=== PATIENT | male | born 1990 | race Caucasian/White ===

== ENCOUNTER 2019-05-23 09:45 | Day surgery (SDC) | payer BC, OTHER ==
[2019-05-23] VITALS (13 sets, daily range): BP systolic 108–134; BP diastolic 53–80; PULSE 54–87; RESP 16–20; Ht 188 cm; Wt 78.6 kg
[~2019-05-23] VITALS: Ht 188 cm; Wt 78.6 kg
[~2019-05-23 09:45] MED LIST: CEFAZOLIN 2 GM/50 ML (PMX) 50 ML IVPB SCH; SOD CHLORIDE 0.9% 1,000 ML IV SCH
[2019-05-23] MEDS ORDERED: AMLO5TAB4 PO (10:30)
--- NOTE | 2019-05-23 11:26 | PREAC ---
Date/Time of Note Date/Time of Note DATE: 05/23/19 TIME: 11:24 Anesthesia Eval and Record Evaluation Time Pre-Procedure Interview DATE: 05/23/19 TIME: 11:24 Age 28 Sex male NPO: 8 hrs Preoperative diagnosis LEFT GROIN, THIGH AND GLUTEAL MASSES Planned procedure EXCISION OF LEFT GROIN, THIGH AND GLUTEAL MASSES Past Medical History Past Medical History: Includes Pulm: Smoking Hx Recreational drugs: Marijuana Surgery & Anesthesia Issues No known issue Meds Anticoagulation: No Beta Sapna within 24 hr: No Reason Beta Sapna not given: Pt. not on B-Sapna Reported Medications Amlodipine Besylate* (Norvasc*) 5 Mg Tablet, 5 MG PO DAILY, TAB 05/23/19 Current Medications Cefazolin Sodium/ Dextrose 50 ml @ 100 mls/hr PRE-OP IVPB ; Start 05/23/19 at 06:00 Sodium Chloride 1,000 ml @ 75 mls/hr [id number] IV Last administered on 05/23/19at 10:53; Admin Dose 75 MLS/HR; Start 05/23/19 at 06:00; Stop 05/23/19 at 18:00 Meds reviewed: Yes Allergies Coded Allergies: No Known Allergy (Unverified , 05/22/19) Allergies Reviewed: Yes Labs/Studies Labs Reviewed: Reviewed by anesthesiologist test: N/A Pre-procedure Exam Last vitals Vital Signs Date Temp Pulse Resp B/P (MAP) Pulse Ox O2 O2 Flow FiO2 Time Delivery Rate 05/23/19 98.8 87 16 130/80 100 Room Air 11:19 (97) Airway: Adequate mouth opening, Adequate thyromental dist Mallampati: Mallampati II Teeth: Normal Lung: Normal Heart: Normal ASA Physical Status ASA physical status: 2 Emergency: None Planned Anesthetic General/MAC: ETT Planned Pain Management Parenteral pain med Pre-operative Attestations Prior to commencing anesthesia and surgery, the patient was re-evaluated, there was verification of: *The patient's identity *The results of appropriate recent lab work and preoperative vital signs *The above evaluation not changing prior to induction *Anesthetic plan, risk benefits, alternative and complications discussed with patient/family; questions answered; patient/family understands, accepts and wishes to proceed. Daron Beck M.D. May 23, 2019 11:26
[2019-05-23] MEDS ORDERED: NEOSTIGMINE 3 MG/3 ML SYRINGE ONE (11:28)
[2019-05-23] MEDS ORDERED: ROCURONIUM 50 MG INJ ONE (11:28)
[2019-05-23] MEDS ORDERED: PROPOFOL 20 ML ONE (11:28)
[2019-05-23] MEDS ORDERED: GLYCOPYRROLATE 0.4 MG INJ ONE (11:28)
[2019-05-23] MEDS ORDERED: CEFAZOLIN 1 GM INJ ONE (11:28)
[2019-05-23] MEDS ORDERED: SUCCINYLCHOLINE CHLORIDE 100 MG/5 ML SYG IV ONE (11:28)
[2019-05-23] MEDS ORDERED: ONDANSETRON 4 MG INJ ONE (11:29)
[2019-05-23] MEDS ORDERED: DEXAMETHASONE 4 MG/ML 5 ML INJ ONE (11:29)
[2019-05-23] MEDS ORDERED: FENTAnyl 50 MCG/ML VIAL ONE ×2 (11:29→11:56)
[2019-05-23] MEDS ORDERED: MIDAZOLAM 1 MG/ML 2 ML INJ ONE (11:29)
[2019-05-23] MEDS ORDERED: LABETALOL HCL 20MG INJ IV PRN (11:30)
[2019-05-23] MEDS ORDERED: EPHEDrine 25 MG/5 ML SYG IV PRN (11:30)
[2019-05-23] MEDS ORDERED: OXYCODONE/ACETAMINOPHEN (5/325) TAB PO PRN ×2 (11:30)
[2019-05-23] MEDS ORDERED: MEPERIDINE 25 MG INJ IV PRN (11:30)
[2019-05-23] MEDS ORDERED: DIPHENHYDRAMINE 50 MG INJ IV PRN (11:30)
[2019-05-23] MEDS ORDERED: FENTAnyl 50 MCG/ML VIAL IV PRN ×3 (11:30)
[2019-05-23] MEDS ORDERED: ONDANSETRON 4 MG INJ IV PRN (11:30)
[2019-05-23] MEDS ORDERED: TRIMETHOBENZAMIDE 100 MG/ML VIAL IM PRN (11:30)
[2019-05-23] MEDS ORDERED: HYDROmorphONE 1 MG/5 ML IV SYRINGE IV PRN ×3 (11:30)
[2019-05-23] MEDS ORDERED: ALBUTEROL 0.083% (NEB) 2.5 MG/3 ML AMP HHN PRN (11:30)
[2019-05-23] MEDS ORDERED: MIDAZOLAM 1 MG/ML 2 ML INJ IV PRN (11:30)
[2019-05-23] MEDS ORDERED: IPRATROPIUM (NEB) 0.5 MG/2.5 ML AMP HHN PRN (11:30)
[2019-05-23] MEDS ORDERED: hydrALAzine 20 MG INJ IV PRN (11:30)
[2019-05-23] MEDS ORDERED: BUPIVACAINE 0.25% (MPF) 30 ML INJ ONE (11:50)
[2019-05-23] MEDS ORDERED: HYDROCODONE/APAP (5/325) TAB PO ONE (12:30)
--- NOTE | 2019-05-23 12:34 | OPR ---
Date/Time of Note Date/Time of Note DATE: 05/23/19 TIME: 12:30 Operative Report Procedure Date: May 23, 2019 Preoperative Diagnosis left gluteal mass left inner thigh mass left groin mass Postoperative Diagnosis same Operation/Procedure Performed 1. excision of left gluteal mass 6 cm mass 6 cm incision 2. localized adjacent tissue transfer with the use of skin flaps 12 sq cm defect of left gluteal area 3. excision of left groin mass 5 cm mass 5 cm incision 4. localized adjacent tissue transfer with the use of skin flaps 10 sq cm defect of left groin 5. excision of left inner thigh mass 7 cm mass 7 cm incision 6. localized adjacent tissue transfer with the use of skin flaps 14 sq cm defect of inner left thigh 7. therapeutic injection of subcutaneous local anesthesia Surgeon see signature line Property Insurance Claims Examiner none Anesthesia Type: general Estimated Blood Loss: 10 - 50 ml's Transfusion none Specimen left inner thigh mass left groin mass left gluteal mass Grafts/Implants none Complications none Pt Condition Post Procedure: stable Indications This is a 28-year-old male with multiple masses. He has a mass in the left inner thigh and left groin and left gluteal region. He request surgical excision of all 3 masses. Risks alternatives benefits and percent were discussed the patient. Patient expressed understanding and consents to the operation. Procedure Description Patient is taken to the OR and prepped and draped in usual sterile fashion. Surgical time was performed. IV antibiotics given. Gluteal mass was addressed initially. Elliptical incision was made over the gluteal mass with a 15 blade. Dissection with cautery skin onto the mass and the mass was circumferentially excised. Good hemostasis status. Due to tissue defect localization just transfer with these of skin flaps were performed. Multilayer closed with interrupted 3-0 Vicryl and skin geri. Attention was then paid to the left groin mass. Elliptical incision was made over the groin mass with a 15 blade. Dissection with cautery skin onto the mass and the mass was circumferentially excised. Good hemostasis status. Due to tissue defect localization just transfer with use of skin flaps were performed. Multilayer closed with interrupted 3-0 Vicryl and skin geri. Attention was then paid to the inner thigh mass. Elliptical incision made with a 15 blade over the inner thigh mass. Dissection with cautery skin onto the mass and the mass was circumferentially excised. Good hemostasis status. Due to tissue defect localization to his transfer with these of skin flaps was performed. Multilayer closed with interrupted 3-0 Vicryl and skin geri. Therapeutic subcutaneous local anesthesia was injected to all incision sites. Dry dressings were applied. Felipe GASPAR May 23, 2019 12:34
--- NOTE | 2019-05-23 12:40 | PAC ---
Date/Time of Note Date/Time of Note DATE: 05/23/19 TIME: 12:40 Post-Anesthesia Notes Post-Anesthesia Note Last documented vital signs Vital Signs Date Temp Pulse Resp B/P (MAP) Pulse Ox O2 O2 Flow FiO2 Time Delivery Rate 05/23/19 98.8 87 16 130/80 100 Room Air 11:19 (97) Activity: WNL Respiratory function: WNL Cardiovascular function: WNL Mental status: Baseline Pain reasonably controlled: Yes Hydration appropriate: Yes Nausea/Vomiting absent: Yes Daron Beck M.D. May 23, 2019 12:40
== END 2019-05-23 14:18 | disposition home or self-care (01) ==
LOC: SDS 09:45
PROVIDERS: ATTEND Surgery
DX: L72.0 Epidermal cyst (principal); L92.9 Granulomatous disorder of the skin and subcutaneous tissue, unspecified; Z87.891 Personal history of nicotine dependence
CPT/HCPCS: 14001; 14021; 88307; J0690; J1100; J2175; J2250; J2405; J2710; J3010; Z7512; Z7610